=== PATIENT | female | born 1960 | race Caucasian/White ===

== ENCOUNTER 2020-05-06 20:46 | Emergency (ER) | payer MEDICARE, SELFPAY ==
[2020-05-06 21:13] VITALS: BMI 24.1
[2020-05-06 21:14] VITALS: PULSE 78; RESP 17; TEMP 36.8; O2SAT 98; BMI 24.1
--- NOTE | 2020-05-06 21:20 | HMH.EDGENADL ---
ED Disposition Clinical Impression: Renal lesion Hematuria Qualifiers: Hematuria type: unspecified type Qualified Code(s): R31.9 - Hematuria, unspecified Disposition: Home, Self-Care Condition on Discharge: Good Instructions: DI for Hematuria Additional Instructions: Follow-up with Dr. Monroe in the office. Call for appointment. Referrals: PCP,No [Primary Care Provider] - Nilson Monroe MD [Staff Physician] - - Critical Care Critical Care Time: No Attestation: On 05/06/20, the high probability of a clinically significant, sudden or life threatening deterioration of the following system(s) required my full and direct attention, intervention and personal management. The time I documented below is in addition to time spent performing reported procedures but includes the following listed in this critical care notation. Medical Decision Making - Medical Records Medical records reviewed: Yes: I reviewed the patient's medical records. - Lonnie Inquiry Pt receiving controlled substance: No Vital Signs: 05/06/20 21:14 05/06/20 21:21 05/06/20 22:25 Temperature 98.3 F Temperature Source Oral Pulse Rate Pulse Rate [Right Brachial] 78 79 Respiratory Rate 17 16 Blood Pressure Blood Pressure [Left Arm] 216/99 H 205/90 H Blood Pressure Mean [Left Arm] 138 128 Blood Pressure Source Blood Pressure Source [Left Arm] Automatic Cuff Automatic Cuff Manual Cuff/ Auscultation Blood Pressure Position Blood Pressure Position [Left Arm] Sitting Supine Supine 02 Sat by Pulse Oximetry 98 100 Oxygen Delivery Method Room Air 05/06/20 23:02 Temperature 98.3 F Temperature Source Oral Pulse Rate 76 Pulse Rate [Right Brachial] Respiratory Rate 17 Blood Pressure 208/90 H Blood Pressure [Left Arm] Blood Pressure Mean [Left Arm] Blood Pressure Source Automatic Cuff Blood Pressure Source [Left Arm] Blood Pressure Position Sitting Blood Pressure Position [Left Arm] 02 Sat by Pulse Oximetry Oxygen Delivery Method Room Air - Lab Data Lab results reviewed: Yes: I reviewed the patient's lab results. Lab Results 05/06/20 21:12: Urine Color Yellow, Urine Appearance Sl cloudy, Urine pH 7.0, Ur Specific [place] 1.020, Urine Protein Negative, Urine Glucose (UA) Negative, Urine Ketones Negative, Urine Blood 3+, Urine Nitrate Negative, Urine Bilirubin Negative, Urine Urobilinogen 0.2, Ur Leukocyte Esterase Negative, Urine RBC 50-100 05/06/20 21:33: WBC 8.2, RBC 4.85, Hgb 16.3 H, Hct 45.3, MCV 93.5, MCH 33.6 H, MCHC 36.0 H, RDW 13.0, Plt Count 145, MPV 10.4, Neut % (Auto) 52.9, Lymph % (Auto) 35.6, [place] % (Auto) 6.1, Eos % (Auto) 4.6, Baso % (Auto) 0.8, Neut # (Auto) 4.3, Lymph # (Auto) 2.9, [place] # (Auto) 0.5, Eos # (Auto) 0.4, Baso # (Auto) 0.1 05/06/20 21:33: Sodium 140, Potassium 3.8, Chloride 105, Carbon Dioxide 27, Anion Gap 11.8, BUN 14, Creatinine 0.70, Estimated Creat Clear 90, Estimated GFR 86, Est GFR ( Amer) 104, Glucose 138 H, Calcium 9.9, Total Bilirubin 0.6, AST 49 H, ALT 44, Alkaline Phosphatase 112, Total Protein 7.2, Albumin 4.3, Globulin 2.9, Albumin/Globulin Ratio 1.5 Result diagrams: 05/06/20 21:33 05/06/20 21:33 Orders (Tests/Meds): ORDERS Category Date Time Status CT abdomen pelvis wo con Stat Cat Scan 05/06/20 21:27 Taken Urine Culture Stat Micro 05/06/20 21:12 Received - CT Data CT Scan: Abdomen, Pelvis Time Received: 22:47 ([facility] fax) Findings Narrative: Indeterminant 2.3 cm hyperdense lesion lower pole left kidney. Malignancy not excluded. Medical Decision Narrative: Prior imaging studies at this hospital 2012: IMPRESSION: Today's ultrasound strongly supports that there is a cyst off the lower pole of the left kidney (good through transmission and back wall enhancement features of a cyst). Only some minimal internal echoes. Thus I am increasingly suspect that we are viewing a hemorrhagic cyst, (which yields the increased density of this area on
[2020-05-06 21:21] VITALS: BP 216/99
--- NOTE | 2020-05-06 21:27 | CT_ITS ---
PROCEDURE: CT ABDOMEN PELVIS WO CON CLINICAL INDICATION: hematuria COMPARISON: No exams were available for comparison TECHNIQUE: Axial images obtained with sagittal and coronal reformats. All CT scans at the facility use one or more dose reduction, viz: automated exposure control, ma/kV adjustment per patient size (including targeted exams where dose is matched to indication, i.e. head), or iterative reconstruction technique. FINDINGS: Lower thorax: The lower lung flores are clear of infiltrate. There is a small 3 mm subpleural nodule likely partially calcified right lower lobe posterior basilar segment. Consider a follow-up screening low dose CT chest exam in view of the smoking history. ABDOMEN: Liver: The liver is normal in size showing some mild overall decreased attenuation suggesting mild fatty infiltration. Gallbladder: Nondistended. No radio opaque stones. Pancreas: No masses or peripancreatic fluid collections. Spleen: unremarkable Adrenals: unremarkable Kidneys/ureters: The kidneys are normal size. There is a small 2.3 cm exophytic solid lesion arising from lower pole left kidney with a CT number of 27, the right kidney is normal. ABDOMEN & PELVIS: Stomach bowel: There is a small sliding hiatal hernia. The stomach is moderately distended with ingested food particles but appears normal. The small bowel is normal. The appendix is normal and partially air-filled. There is a moderate amount stool in the cecum and ascending colon with scattered stool and gas seen in the remainder of the colon. Peritoneum: No abnormal fluid collections. No obvious inflammatory changes. No free air. Lymph nodes: No enlarged lymph nodes apparent. Vasculature: There is prominent diffuse arthrosclerotic calcification of the lower abdominal aorta and proximal common iliac arteries but there is no aneurysm. Bones: No acute fracture PELVIS: Reproductive: unremarkable Bladder: Bladder is somewhat decompressed, there is no free fluid in the pelvis. There are several phleboliths in the mid lower pelvis. Appendix: Unremarkable. No distention or periappendiceal phlegmonous change. IMPRESSION: 1. Mild fatty steatosis 1. Indeterminate solid mass exophytic location lower pole left kidney and consider follow-up CT scan with contrast for additional evaluation Dictated by: Dr. Carlo Reese MD 05/07/2020 08:31 Dr. Carlo Reese MD in [place] 05/07/2020 08:31
[2020-05-06 21:55] LABS: Alanine Aminotransferase 44 U/L (12-78); Albumin Level 4.3 g/dl (3.5-5.0); Albumin/Globulin Ratio 1.5 (1.1-1.8); Alkaline Phosphatase 112 U/L (38-126); Anion Gap 11.8 mEq/L (5-15); Aspartate Amino Transferase 49 U/L (14-36); Bilirubin,Total 0.6 mg/dl (0.2-1.3); Blood Urea Nitrogen 14 mg/dl (7-17); Calcium 9.9 mg/dl (8.4-10.2); Carbon Dioxide 27 mmol/L (22.0-30.0); Chloride 105 mmol/L (98-107); Creatinine Clearance Estimated 90 mL/min (50-200); Estimated Glomerular Filt Rate 86 ml/min (>60); GFR (African American) 104 ML/MIN (>60); Globulin 2.9 g/dL (1.3-3.2); Glucose 138 mg/dl (74-100); Potassium 3.8 mmoL/L (3.5-5.1); Sodium 140 mmol/L (136-145); Total Protein,Serum 7.2 g/dl (6.3-8.2)
[2020-05-06 21:58] LABS: Microscopic, Urine URINE MICROSCOPIC (MICROSCOPIC)
[2020-05-06 21:58] LABS: Basophils # 0.1 K/mm3 (0-0.2); Basophils % 0.8 % (0.1-2.0); Eosinophils # 0.4 K/mm3 (0.0-0.4); Eosinophils % 4.6 % (0.1-12.0); Hematocrit 45.3 % (37.0-47.0); Hemoglobin 16.3 g/dL (12.2-16.2); Lymphocytes # 2.9 K/mm3 (0.7-4.5); Lymphocytes % 35.6 % (10-50); Mean Corpuscular Hemoglobin 33.6 pg (27.0-31.2); Mean Corpuscular Volume 93.5 fl (81-99); Mean Platelet Volume 10.4 fl (7.4-10.4); Monocytes # 0.5 K/mm3 (0.1-1.0); Monocytes % 6.1 % (1.7-9.3); Neutrophils # 4.3 K/mm3 (1.8-7.8); Neutrophils % 52.9 % (37.0-80.0); Platelet Count 145 K/mm3 (142-424); Red Blood Count 4.85 M/mm3 (4.20-5.40); White Blood Count 8.2 K/mm3 (4.8-10.8)
[2020-05-06 22:04] LABS: Appearance,Urine SL CLOUDY (Clear); Bilirubin,Urine Negative (Negative); Blood, Urine 3+ (Negative); Color,Urine YELLOW (Yellow); Glucose,Urine (UA) Negative (Negative); Ketones,Urine Negative (Negative); Leukocyte Esterase,Urine Negative (Negative); Nitrate,Urine Negative (Negative); Protein,Urine Negative (Negative); Urobilinogen,Urine 0.2 EU/dl (0.2)
[2020-05-06 22:09] LABS: RBC,Urine 50-100 #/hpf (0-3)
[2020-05-06 22:25] VITALS: BP 205/90; PULSE 79; RESP 16; O2SAT 100
[2020-05-06 23:02] VITALS: BP 208/90; PULSE 76; RESP 17; TEMP 36.8; O2SAT 100
== END 2020-05-07 00:13 | disposition home or self-care (01) ==
PROVIDERS: Emergency Provider Emergency Medicine; PCP Nurse Practitioner Family
DX: N28.89 Other specified disorders of kidney and ureter (principal)
CPT/HCPCS: 74176; 80053; 81001; 85025; 87086; 99283

== ENCOUNTER → 2020-06-04 10:25 | Outpatient (CLI) | payer MEDICARE, SELFPAY ==
[2020-06-04 13:40] LABS: Coronavirus 19 IgG Antibody Negative (Negative); Coronavirus 19 IgM Antibody Negative (Negative)
== END ==
PROVIDERS: PCP Nurse Practitioner Family; Visit Provider Urology
DX: N28.9 Disorder of kidney and ureter, unspecified (principal); R31.9 Hematuria, unspecified; Z01.89 Encounter for other specified special examinations
CPT/HCPCS: 36415; 86328

== ENCOUNTER 2020-06-05 09:24 | Day surgery (SDC) | payer MEDICARE, SELFPAY ==
[2020-06-05 09:39] VITALS: BP 204/105; PULSE 72; RESP 15; TEMP 36.2; O2SAT 98; BMI 24.6
[2020-06-05 10:05] VITALS: BP 164/92; PULSE 62; RESP 18; TEMP 36.7; O2SAT 98
--- NOTE | 2020-06-05 10:26 | P.OP_ITS ---
Date of procedure: 06/05/20 Pre-op Diagnosis:: Gross hematuria Post-op Diagnosis:: Same Procedure performed:: Cystourethroscopy Surgeon:: Nilson Monroe MD Anesthesia: local Estimated blood loss (mL): 0 Clinical Note:: 59-year-old white female with recent gross hematuria. CT scan is shown a left- sided renal hemorrhagic cyst which is been stable for 8 years. She presents for urologic evaluation today. Operative findings:: Normal bladder mucosa, couple of small urethral polyps at the bladder neck. Operative note:: Patient taken to the operating room after informed consent was obtained. On the stretcher she was prepped and draped in the standard surgical fashion in the frog-leg position. 2% lidocaine placed into the urethra and after 5 minutes the flexible cystoscope introduced into the urethral meatus. Passed into the bladder without difficulty and the bladder examined in a systematic fashion. There is no evidence of mucosal abnormalities, stones, diverticula or trabeculation. The ureteral orifices were in their normal anatomic position with clear reflux of urine. Bladder neck showed couple of polyps present there that were not friable. Urethra was normal otherwise and the scope removed. Patient tolerated procedure well there are no complications. We discussed the negative findings today and she is to return if she should have any further hematuria. Condition: stable Disposition: same day Specimens:: None Complications:: None
== END 2020-06-05 09:59 | disposition home or self-care (01) ==
LOC: OUTP 09:26
PROVIDERS: PCP Nurse Practitioner Family; Visit Provider Urology
PROC: (CPT 52000; principal; 2020-06-05 10:00)
DX: N36.2 Urethral caruncle (principal); R31.0 Gross hematuria; N28.1 Cyst of kidney, acquired; Z79.899 Other long term (current) drug therapy; J45.909 Unspecified asthma, uncomplicated; I10 Essential (primary) hypertension; M19.90 Unspecified osteoarthritis, unspecified site; Z72.0 Tobacco use
CPT/HCPCS: 52000